=== PATIENT | female | born 1970 | race Caucasian/White ===

== ENCOUNTER 2018-04-05 12:57 | Outpatient (CLI) | payer BC ==
--- NOTE | 2018-04-05 16:05 | PET ---
RADIONUCLIDE WHOLE BODY PET SCAN WITH CT ATTENUATION CORRECTION: HISTORY: Melanoma. Initial staging. FINDINGS: There is physiologic uptake of radiotracer throughout the enteric system and along each urinary tract . Some uptake is also seen along the vasculature of the right arm consistent with injection of radio tracer. No areas of pathologic uptake are seen. Imaging was carried through the feet, with particul ar attention paid to the skin throughout. Nondiagnostic CT attenuation correction images show a subtle hyperdense stone in the incompletely dis tended gallbladder lumen. Large heterogeneous calcified and noncalcified masses also arise from the uterus, measuring up to 9.7 cm projecting rightward from the uterine fundus. IMPRESSION: 1. No abnormal areas of hypermetabolic activity are apparent. No evidence of metastatic disease. 2. Cholelithiasis. 3. Prominent fibroid involvement of the uterus. POS: OWEN
== END 2018-04-05 12:58 | disposition home or self-care (01) ==
LOC: PET 12:57
PROVIDERS: ATTEND Internal Medicine Hematology & Oncology
DX: C43.9 Malignant melanoma of skin, unspecified (principal); K80.20 Calculus of gallbladder without cholecystitis without obstruction; D25.9 Leiomyoma of uterus, unspecified
CPT/HCPCS: 78816; A9552

== ENCOUNTER 2018-04-08 07:21 | Day surgery (SDC) | payer BC ==
[2018-04-07 14:34] VITALS: BMI 26.6
--- NOTE | 2018-04-08 10:27 | NM ---
NUCLEAR MEDICINE LYMPHOSCINTIGRAPHY FOR LYMPHOMA: Date: 04/08/18 HISTORY: Lymphoma along the left upper back. COMPARISON: None. TECHNIQUE: Patient was administered 0.421 mCi of technetium-99m sulfur colloid subcutaneously. Images were obtai umesh. FINDINGS: There is a sentinel lymph node in the left axilla. IMPRESSION: Left axillary sentinel lymph node. POS: JACOB
[2018-04-08] MEDS ORDERED: Heparin 5,000 UNITS/ML VIAL ONE (10:32)
[2018-04-08] MEDS ORDERED: Midazolam HCl 2 mg/2 ml Vial ONE (13:23)
[2018-04-08] MEDS ORDERED: Fentanyl 100 MCG/2 ML VIAL ONE ×2 (13:23→16:01)
[2018-04-08] MEDS ORDERED: Lidocaine 1% PF 5 ML VIAL ONE (14:26)
[2018-04-08] MEDS ORDERED: PROPOFOL 200 MG/20 ML VIAL ONE (14:26)
[2018-04-08] MEDS ORDERED: PHENYLEPHRINE-NS 100 MCG/ML 10 ML SYRINGE ONE (14:26)
[2018-04-08] MEDS ORDERED: Rocuronium Bromide 10 MG/ML (10ML VIAL) ONE (14:26)
[2018-04-08] MEDS ORDERED: Dexamethasone 20 MG/5 ML VIAL ONE (14:26)
[2018-04-08] MEDS ORDERED: Ondansetron PF 4 MG/2 ML Vial ONE (14:26)
[2018-04-08] MEDS ORDERED: Bacitracin Zinc Ointment 30 gm TUBE ONE (15:54)
[2018-04-08] MEDS ORDERED: Ophthalmic Irrigation Solution 0 ML ONE (15:54)
[2018-04-08] MEDS ORDERED: Bupivacaine HCl 0.5%/Epinephrine 1:200,000/PF 30 ml Vial ONE (15:54)
[2018-04-08] MEDS ORDERED: Isosulfan Blue 50 MG/5 ML VIAL ONE (16:02)
[2018-04-08] MEDS ORDERED: SUGAMMADEX SODIUM 200 MG/2 ML VIAL ONE (18:28)
--- NOTE | 2018-04-11 09:38 | OP ---
DATE OF PROCEDURE: 04/08/2018 PREOPERATIVE DIAGNOSIS: Malignant melanoma of left back (7 mm Breslow thickness). POSTOPERATIVE DIAGNOSIS: Malignant melanoma of left back (7 mm Breslow thickness). PROCEDURE PERFORMED: 1. Wide excision melanoma of back (6.6 cm including adequate margins). 2. Rhomboid rotational flap (40 cm2), (15366). 3. Injection of Lymphazurin for identification of sentinel lymph node (65492). 4. Open left axillary sentinel lymph node biopsy ([id number]). DESCRIPTION OF PROCEDURE: Following the induction of adequate anesthesia, the patient was prepped and draped in the usual sterile fashion in supine position. The patient's lesion had gross margins marked at 2 cm. The excision went down to and including the muscle overlying the fascia. This was sent to permanent section analysis. The defect cannot be closed without undue tension primarily; therefore a rhomboid rotation flap reconstruction was elected. The rhomboid flap was designed and elevated in deep plane and then rotated in place. It was inset closing the donor and recipient site with a combination of layered 2-0 PDS suture followed by 3-0 Monocryl suture and 4-0 Monocryl suture for the skin edges. A drain was placed prior to insetting the flap. The surgical field was copiously irrigated and inspected for meticulous hemostasis prior to closure as well. Attention was turned to the lymph node biopsy. Prior to surgery, an intradermal lymphazurin blue was injected around the primary lesion. A left axillary incision was made. Dissection was carried sharply down through the subcutaneous tissue to identify a single sentinel lymph node with aid of a Miguel-probe as well as the identification of dye. A single lymph node was lit up with radioactivity. It was also blue. There is no other blue identified nor any radioactivity in the patient after this. A combination of hemoclips and electrocautery were used. The field was copiously irrigated and inspected for meticulous hemostasis prior to closure of the superficial fascial system with 2-0 PDS suture followed by the dermis with interrupted and running 4-0 Monocryl suture. All incisions were dressed with Dermabond. The patient tolerated the procedure well. Job ID: [id number]
== END 2018-04-08 20:36 | disposition home or self-care (01) ==
LOC: SDC 07:21
PROVIDERS: ATTEND Plastic Surgery
PROC: 0HB6XZZ Excision of Back Skin, External Approach (ICD-10-PCS; principal; 2018-04-08)
PROC: 0HX6XZZ Transfer Back Skin, External Approach (ICD-10-PCS; principal; 2018-04-08)
PROC: 07B60ZX Excision of Left Axillary Lymphatic, Open Approach, Diagnostic (ICD-10-PCS; principal; 2018-04-08)
DX: D22.5 Melanocytic nevi of trunk (principal); C96.9 Malignant neoplasm of lymphoid, hematopoietic and related tissue, unspecified
CPT/HCPCS: 78195; 88305; 88307; 88342; A9541; J0670; J1100; J1644; J2001; J2250; J2405; J2704; J3010; Q9968

== ENCOUNTER 2018-06-07 08:17 | Outpatient (CLI) | payer BC ==
--- NOTE | 2018-06-07 09:11 | MMO ---
Bilateral MAMMO Bilat Screen [facility]. CLINICAL HISTORY: Patient is 47 years old and is seen for screening. The patient has the following family history of breast cancer: mother, at age 60. The patient has no personal history of cancer. VIEWS: The views performed were: bilateral craniocaudal with tomosynthesis and bilateral mediolateral oblique with tomosynthesis. MAMMOGRAM FINDINGS: The breasts are heterogeneously dense, which could obscure a lesion on mammography. There are no suspicious masses, suspicious calcifications, or new areas of architectural distortion. IMPRESSION: THERE IS NO MAMMOGRAPHIC EVIDENCE OF MALIGNANCY. A ROUTINE FOLLOW-UP MAMMOGRAM IN 1 YEAR IS RECOMMENDED. THE RESULTS OF THIS EXAM WERE SENT TO THE PATIENT. ACR BI-RADS Category 1 - Negative MAMMOGRAPHY NOTE: 1. A negative mammogram report should not delay a biopsy if a dominant of clinically suspicious mass is present. 2. Approximately 10% to 15% of breast cancers are not detected by mammography. 3. Adenosis and dense breasts may obscure an underlying neoplasm.
== END 2018-06-07 08:18 | disposition home or self-care (01) ==
LOC: BICMAMMO 08:17
PROVIDERS: ATTEND Internal Medicine Hematology & Oncology
DX: Z12.31 Encounter for screening mammogram for malignant neoplasm of breast (principal); Z80.3 Family history of malignant neoplasm of breast
CPT/HCPCS: 77063; 77067

== ENCOUNTER 2018-06-09 13:38 | Outpatient (CLI) | payer BC ==
--- NOTE | 2018-06-09 15:10 | ULT ---
US Venous Doppler Bilat EXAM: Bilateral lower extremity venous ultrasound HISTORY: Bilateral lower extremity pain and edema COMPARISON: None TECHNIQUE: Multiplanar grayscale and color Doppler images were obtained in a bilateral lower extremit y venous ultrasound. Spectral analysis of the Doppler waveforms were performed. FINDINGS: The bilateral common femoral vein, profunda femoral veins, superficial femoral veins, and p opliteal veins are normal in appearance without visible thrombus. These vessels demonstrate normal compression, flow, and augmentation. The bilateral posterior tibial veins and greater saphenous veins are patent without evidence of DVT. IMPRESSION: No evidence of DVT.
== END 2018-06-09 13:39 | disposition home or self-care (01) ==
LOC: ULT 13:38
PROVIDERS: ATTEND Internal Medicine Hematology & Oncology
DX: M25.472 Effusion, left ankle (principal); M25.471 Effusion, right ankle; I82.90 Acute embolism and thrombosis of unspecified vein; C43.59 Malignant melanoma of other part of trunk
CPT/HCPCS: 93970

== ENCOUNTER 2018-06-13 13:32 | Outpatient (CLI) | payer BC | END 2018-06-13 13:33 | disposition home or self-care (01) | LOC: ULT 13:32 | PROVIDERS: ATTEND Internal Medicine Hematology & Oncology | DX: Z51.11 Encounter for antineoplastic chemotherapy (principal); C43.59 Malignant melanoma of other part of trunk; Z79.899 Other long term (current) drug therapy; I08.1 Rheumatic disorders of both mitral and tricuspid valves | CPT/HCPCS: 93306 ==

== ENCOUNTER 2018-08-12 09:08 | Outpatient (CLI) | payer BC ==
--- NOTE | 2018-08-12 12:05 | PET ---
WHOLE PET CT: HISTORY: Stage III melanoma of the trunk. Tp0 had last chemotherapy in June 2018. Exam was requested for rest aging. TECHNIQUE: PET scanning with CT attenuation correction was performed from the vertex through the feet following the intravenous administration of 11.5 mCi [id number] in the right antecubital fossa. COMPARISON: 04/05/2018. FINDINGS: No judah hypermetabolism is seen in the neck, chest, axillae, abdomen, pelvis, groins, or popliteal r egions. No hypermetabolic pulmonary nodules, liver, adrenal, or skeletal lesions are seen. There is physiologic activity in the GI and tracts and the brain. The CT scan used for attenuation correction demonstrates no evidence of pleural effusions or ascites. Enlarged fibroid uterus and cholelithiasis are again seen. IMPRESSION: No evidence of metastatic disease. POS: OWEN
== END 2018-08-12 09:09 | disposition home or self-care (01) ==
LOC: PET 09:08
PROVIDERS: ATTEND Internal Medicine Hematology & Oncology
DX: C43.59 Malignant melanoma of other part of trunk (principal)
CPT/HCPCS: 78816; A9552

== ENCOUNTER 2018-09-27 12:56 | Outpatient (CLI) | payer BC ==
--- NOTE | 2018-09-27 13:42 | ULT ---
VENOUS DOPPLER ULTRASOUND OF THE RIGHT UPPER EXTREMITY: HISTORY: Edema of the right arm. Stage III melanoma of the trunk. TECHNIQUE: Garvey scale, color flow, and spectral Doppler imaging of the deep venous system of the right upper ext remity was performed. FINDINGS: There is absence of compression and flow in the right basilic vein. The right internal jugular, subc lavian, axillary, brachial, radial, ulnar, and cephalic veins demonstrate good flow, normal spectral waveforms, and compression without evidence of thrombosis. IMPRESSION: Venous thrombosis in the right basilic vein. Discussed over the telephone with Dr. Macdonald (covering for Dr. Gordillo) at 1:29 p.m. CODE CR POS: OWEN
== END 2018-09-27 12:57 | disposition home or self-care (01) ==
LOC: SCSULT 12:56
PROVIDERS: ATTEND Internal Medicine Hematology & Oncology
DX: M79.601 Pain in right arm (principal); R60.0 Localized edema; I82.611 Acute embolism and thrombosis of superficial veins of right upper extremity